=== PATIENT | female | born 1965 | race Caucasian/White ===

== ENCOUNTER → 2017-07-26 | Day surgery (SDC) | payer BC ==
[2017-07-24 16:59] VITALS: BMI 29.2
[~2017-07-26] MED LIST: LACTATED RINGERS 1,000 ML IV SCH; LIDOCAINE 1% 20 ML VIAL (10MG/ML) FOR IV START INTRADERMA ONE; LIDOCAINE 1% INJ 10MG/ML (20 ML MDV) ONE; MIDAZOLAM 2 MG/2 ML VIAL ONE; PROPOFOL 10 MG/ML 20 ML VIAL IV ONE
--- NOTE | 2017-07-26 09:12 | P.PCN ---
Date of Procedure: 07/26/17 Procedure(s) Performed: Procedure: Colonoscopy and polypectomy. Preoperative diagnosis: Screening for neoplasia. Postoperative diagnosis: 1. Small hepatic flexure polyp snared but no large polyps or cancer. 2. Diverticulosis with no evidence of acute diverticulitis or strictures. Preparation: HalfLytely prep. Sedation: Was provided by anesthesia. Brief clinical history: The patient is a 51-year-old female who is referred for this evaluation for screening for neoplasia age being her risk factor. She has no family history of colon cancer. She has no abdominal complaints, bleeding or anemia. This would be her first colonoscopy. Procedure: With the patient on her left lateral decubitus position and after informed consent and adequate sedation, the perianal area was inspected and it did not show any fissures or fistulas. There were no masses felt on digital rectal examination. The Olympus CFQ 160L video colonoscope was then inserted in the rectum in the usual fashion and advanced to the cecum. There were multiple diverticular orifices seen scattered, mostly in the sigmoid and left side with occasional orifice around the hepatic flexure with no evidence of acute diverticulitis or strictures. The mucosa appeared healthy. There was a small, less than 1 cm, polyp noted around the hepatic flexure which was snared and retrieved by suction but there were no large polyps or cancer. I retroflexed the endoscope in the rectum before the endoscope was withdrawn. The patient tolerated the procedure well. Plan: The patient was reassured. Discussed dietary measures. She will follow- up with you as planned and I anticipate repeating her colonoscopy in 5 years.
[2017-07-26 09:14] VITALS: RESP 16
[2017-07-26 09:29] VITALS: BP 128/83; PULSE 67
== END ==
LOC: ORWHC2ENDO 07:51
DX: Z12.11 Encounter for screening for malignant neoplasm of colon (principal); K57.30 Diverticulosis of large intestine without perforation or abscess without bleeding; D12.3 Benign neoplasm of transverse colon; F17.200 Nicotine dependence, unspecified, uncomplicated
CPT/HCPCS: 88305; 45385; J2250; J2001; J2704

== ENCOUNTER → 2020-04-12 | Outpatient (CLI) | payer BC ==
--- NOTE | 2020-04-12 11:55 | XR ---
EXAMINATION TYPE: XR foot complete LT DATE OF EXAM: 04/12/2020 CLINICAL HISTORY: Twisting injury yesterday with pain. TECHNIQUE: Frontal, lateral, and oblique images of the left foot are obtained. COMPARISON: None FINDINGS: There is no acute fracture/dislocation evident in the left foot. Flexion of the toes is s een. Small to moderate size inferior calcaneal spur. The joint spaces in the left foot appear within normal limits. The overlying soft tissue appears unremarkable. IMPRESSION: There is no acute fracture or dislocation in the left foot.
== END | disposition home or self-care (01) ==
LOC: RADXRYALE 11:36
PROVIDERS: ATTEND Physician Assistant Medical
DX: M79.672 Pain in left foot (principal)

== ENCOUNTER → 2022-05-24 | Outpatient (CLI) | payer OTHER ==
--- NOTE | 2022-05-24 09:37 | XR ---
EXAMINATION TYPE: XR foot complete LT DATE OF EXAM: 05/24/2022 9:25 AM INDICATION: Patient age:Female; 56 years old; Reason for study: [id number] LT FOOT PAIN; COMPARISON: Left foot radiograph 04/12/2020 TECHNIQUE: The left foot was examined in the AP, oblique, and lateral projections. FINDINGS: No evidence of any acute osseous pathology. No evidence of soft tissue swelling. Joints are preserve d. No radiopaque foreign bodies. Plantar calcaneal spurring is similar. No corresponding radiographic abnormality to patient's reported palpable lump. No subcutaneous gas. IMPRESSION: * No evidence of acute fracture. No significant change from prior examination 04/10/2020. * No corresponding radiographic abnormality related patient's reported palpable lump.
== END | disposition home or self-care (01) ==
LOC: RADXRYALE 09:12
PROVIDERS: ATTEND Physician Assistant
DX: M79.672 Pain in left foot (principal)

== ENCOUNTER → 2022-10-23 | Outpatient (CLI) | payer OTHER ==
--- NOTE | 2022-10-23 13:58 | CT ---
EXAMINATION TYPE: CT abdomen pelvis wo/w con DATE OF EXAM: 10/23/2022 COMPARISON: NONE HISTORY: 56-year-old female [id number], acquired cyst of kidney, shadow on kidney on prior MRI TECHNIQUE: Contiguous axial scanning of the abdomen and pelvis following before and after administrat ion of 70 ml Omnipaque 300 IV contrast. Delayed images through the kidneys and coronal/sagittal arnold nstructions performed. CT DLP: 1812.5 mGycm Automated exposure control for dose reduction was used. FINDINGS: Heart normal size without pericardial effusion. Strandy atelectasis in the lower lungs without pleura l effusion. Tiny hiatal hernia. No focal liver lesion or biliary ductal dilatation. Portal venous system is patent. No biliary ductal dilatation. Gallbladder, adrenal glands, right kidney, spleen, and pancreas within normal limits. 1.1 cm cortical cyst lateral upper pole left kidney. No dilated small bowel, free fluid, or free air. No mesenteric or retroperitoneal lymphadenopathy. Normal appendix. Oral contrast progressed to the splenic flexure of the colon. Mild scattered stool. Redundant sigmoid colon. No pericolic inflammatory change. Prominent stool distending the rectum up to 6.0 cm wide. Prominent urinary distention of the bladder by 14.2 cm craniocaudal. Please correlate to ensure that this represents voluntary retention. There are 2 tubal ligation clips located in the left side of the pelvis. The right-sided tubal ligation clip is likely displaced from its correct position. Both ovar ies are visualized. No abnormal fluid collection in the pelvis or pelvic lymphadenopathy. Bones: Chronic-appearing superior endplate deformity of L3. Superior end plate Schmorl's nodes of T11 and T12. Hypertrophic facet arthropathy. Grade 1 retrolisthesis L2-L3. Moderate to advanced degener ative disc disease L5-S1. IMPRESSION: 1. A BENIGN 1.1 CM CORTICAL CYST LATERAL UPPER POLE LEFT KIDNEY. NO SUSPICIOUS RENAL MASS OTHERWISE S EEN. 2. TINY HIATAL HERNIA. 3. PROMINENT DISTENTION OF THE URINARY BLADDER. PLEASE CORRELATE TO ENSURE THAT THIS REPRESENTS VOLUN TARY RETENTION.
== END | disposition home or self-care (01) ==
LOC: RADCTMAIN 10:04
PROVIDERS: ATTEND Family Medicine
DX: N28.1 Cyst of kidney, acquired (principal)
CPT/HCPCS: 74178; Q9967

== ENCOUNTER → 2024-10-28 | Outpatient (CLI) | payer OTHER ==
--- NOTE | 2024-10-28 10:55 | US ---
EXAMINATION TYPE: US kidneys/renal and bladder DATE OF EXAM: 10/28/2024 COMPARISON: CT abdomen and pelvis 10/23/22 CLINICAL INDICATION: Female, 58 years old with history of R31.9 HEMATURIA; microscopic hematuria TECHNIQUE: Grayscale imaging of the bilateral kidneys and urinary bladder: FINDINGS: EXAM MEASUREMENTS: Right Kidney: 12.4 x 5.5 x 5.5 cm Left Kidney: 11.2 x 4.2 x 4.9 cm Post Void Residual Volume: 31.7 mL Right Kidney: No hydronephrosis or masses seen Left Kidney: hypoechoic area seen in sup pole measuring 1.3 x 1.2 x 1.2cm Bladder: wnl Bilateral Jets seen: yes Normal Post Void Residual: yes There is no evidence for hydronephrosis at this point in time. Cortical medullary differentiation is maintained bilaterally. No nephrolithiasis is seen. Left renal superior pole 1.3 cm simple cyst. No solid masses are identified. The urinary bladder is anechoic. IMPRESSION: 1. No hydronephrosis or shadowing renal calculi. 2. Left renal upper pole 1.3 cm simple cyst. 3. Unremarkable urinary bladder with normal postvoid residual. [facility], , 10/28/2024 10:52 AM
== END | disposition home or self-care (01) ==
LOC: RADUSWWP 10:18
PROVIDERS: ATTEND Family Medicine
DX: N28.1 Cyst of kidney, acquired (principal); R39.198 Other difficulties with micturition; R31.9 Hematuria, unspecified
CPT/HCPCS: 76770

== ENCOUNTER 2025-01-29 19:13 | Emergency (ER) | payer OTHER ==
[2025-01-29] MEDS: MORPHINE SULFATE 4 MG/ML SYRINGE IM STA (20:27)
[2025-01-29] MEDS: LIDOCAINE 4% PATCH TOPICAL ONE (20:28)
--- NOTE | 2025-01-29 21:22 | CT ---
EXAMINATION TYPE: CT lumbar spine wo con CT DLP: 1311.6 mGycm, Automated exposure control for dose reduction was used. DATE OF EXAM: 01/29/2025 8:47 PM COMPARISON: CT abdomen and pelvis 10/23/2022. CLINICAL INDICATION:Female, 59 years old with history of pain; PHH, Low back pain., pain TECHNIQUE: Multiple axial images were obtained from the midportion of T11 through the sacroiliac joe nts. Soft tissue and bone windows in coronal and sagittal planes were obtained and reviewed. Contrast used: none. Oral contrast used: none. FINDINGS: Alignment: There are 5 lumbar type vertebral bodies within normal alignment. Bone: No evidence of fracture is identified. Mild degenerative changes of the bilateral SI joints. S chmorl's node involving the superior endplate of the T12 vertebral body with endplate sclerosis aroun d the disc at this level. Additional Schmorl's node involving the superior endplate of the L3 vertebr al body. Additional posterior endplate sclerosis involving the disc at this level. The Schmorl's node s are stable from 2021 exam. Discs: T12-L1: No spinal canal or neural foraminal stenosis is identified. L1-L2: No spinal canal or neural foraminal stenosis is identified. L2-L3: Broad-based disc bulge with mild effacement of the anterior thecal sac. The left neural forame n is patent. Mild right neural foraminal stenosis. L3-L4: Broad-based disc bulge with minimal effacement of the anterior thecal sac. No neural foraminal stenosis. L4-L5: Broad-based disc bulge with mild effacement of the anterior thecal sac. No neural foraminal st enosis. L5-S1: Vacuum disc disease identified with disc space narrowing. Broad-based disc bulge without signi ficant effacement of the anterior thecal sac. Bilateral facet arthropathy. Prominent left lateral ost eophyte. The right neural foramen is patent. Moderate left neural foraminal stenosis. Other: Left-sided tubal ligation clip. Migrated right tubal ligation clip within the right rectouteri ne space. Mild atherosclerotic calcification of the abdominal aorta. IMPRESSION: 1. No evidence for spinal fracture. 2. Mild multilevel degenerative disc disease and facet arthropathy as described above. Moderate left neural foraminal stenosis at L5-S1. [facility], , 01/29/2025 9:19 PM
--- NOTE | 2025-01-29 21:58 | ED ---
General Adult HPI - General Chief complaint: Back Pain/Injury Stated complaint: Back Pain/R Leg Weakness Time Seen by Provider: 01/29/25 20:00 Source: patient, RN notes reviewed, old records reviewed Mode of arrival: ambulatory Limitations: no limitations - History of Present Illness Initial comments: Patient is a 59-year-old female presents emergency department with acute on chronic back pain. Has a known disc herniation in the lumbar spine. States she was stretching and injured her back today. Denies any urinary or bowel incontinence or retention. Denies any lower extremity paralysis or weakness. Denies any saddle paresthesias. Denies any obvious injuries. States it is a pulling sensation lower spine. No shooting pain down the posterior aspect of either leg. Denies any focal weakness but pain with movement or standing up. Presents for further evaluation at this time. Has not followed up with a spine surgeon. - Related Data Home Medications Medication Instructions Recorded Confirmed Ginseng 1 dose PO DAILY 07/24/17 Multivitamins, Thera [Multivitamin 1 tab PO DAILY 07/24/17 07/24/17 (formulary)] Sea Kelp 1 dose PO DAILY 07/24/17 Previous Rx's Medication Instructions Recorded Cyclobenzaprine [Flexeril] 5 mg PO TID PRN 5 Days #15 tablet 01/29/25 Lidocaine 4% Patch 1 patch TOPICAL DAILY PRN 14 Days 01/29/25 #14 patch Allergies Allergy/AdvReac Type Severity Reaction Status Date / Time No Known Allergies Allergy Verified 01/29/25 19:31 Review of Systems ROS Statement: Those systems with pertinent positive or pertinent negative responses have been documented in the HPI. Review of Systems: CONST: Denies fever EYES: Denies blurry vision ENT: Denies nasal congestion C/V: Denies Chest pain RESP: Denies shortness of breath GI: Denies abdominal pain : Denies dysuria SKIN: Denies rash. MSK: Endorses back pain NEURO: Denies headache ROS Other: All systems not noted in ROS Statement are negative. Past Medical History Past Medical History: No Reported History History of Any Multi-Drug Resistant Organisms: None Reported Past Surgical History: Tubal Ligation Past Anesthesia/Blood Transfusion Reactions: No Reported Reaction Past Psychological History: No Psychological Hx Reported Smoking Status: Vaper Past Alcohol Use History: Occasional Past Drug Use History: None Reported - Past Family History Mother Family Medical History: Cancer Father Family Medical History: Myocardial Infarction ([place]) General Exam - General Exam Comments Initial Comments: General: Appears in mild distress secondary to back pain. HEAD: Normal with no signs of head trauma. EYES: EOMI ENT: Hearing grossly intact RESPIRATORY: Clear breath sounds bilaterally. No wheezes, rales, or rhonchi. C/V: Regular rate and rhythm. Peripheral pulses 2+ intact throughout. S1 and S2 auscultated. ABD: Nondistended EXT: Decreased range of motion of the trunk secondary to lower back pain. No obvious deformity of the spine. Midline lumbar spine tenderness to palpation primarily L3-S1. No step-offs or deformities present. No thoracic or cervical spine tenderness to palpation. Paraspinal muscle tenderness to palpation as well. SKIN: No rashes or lesions observed on exposed skin. NEURO: Alert and oriented x 4. No focal deficits. GCS of 15. NIH is 0. Limitations: no limitations Course Vital Signs 01/29/25 01/29/25 19:27 21:59 Temperature 97.6 F 97.9 F Pulse Rate 93 81 Respiratory 16 18 Rate Blood Pressure 134/82 117/76 O2 Sat by Pulse 97 99 Oximetry Medical Decision Making - Medical Decision Making Was pt. sent in by a medical professional or institution (, PA, CD TECHNICIAN, urgent care, hospital, or senior living...) When possible be specific @ -No Did you speak to anyone other than the patient for history (EMS, parent, family, police, friend...)? What history was obtained from this source @ -No Did you review nursing and triage notes (agree or disagree)? Why? @ -I reviewed and agree with nursing and triage notes Were old charts reviewed (outside hosp., previous admission, EMS record, old EKG, old radiological studies, urgent care reports/EKG's, senior living records)? Report findings @ -No old charts were reviewed Differential Diagnosis (chest pain, altered mental status, abdominal pain women, abdominal pain men, vaginal bleeding, weakness, fever, dyspnea, syncope, headache, dizziness, GI bleed, back pain, seizure, CVA, palpatations, mental health, musculoskeletal)? @ -Differential Back Pain: Strain, zoster, cauda equina syndrome, epidural abscess, vertebral osteomyelitis, discitis, fracture, subluxation, disc herniation, DJD, spinal stenosis, dissection, AAA, pancreatitis, peptic ulcer disease, pyelonephritis, kidney stone, this is not meant to be an all-inclusive list. EKG interpreted by me (3pts min.). @ -None done X-rays interpreted by me (1pt min.). @ -None done CT interpreted by me (1pt min.). @ -CT lumbar spine revealed disc herniations L2-S1 with some neural foraminal stenosis at L5-S1. U/S interpreted by me (1pt. min.). @ -None done What testing was considered but not performed or refused? (CT, X-rays, U/S, labs)? Why? @ -None What meds were considered but not given or refused? Why? @ -None Did you discuss the management of the patient with other professionals (professionals i.e. , PA, CD TECHNICIAN, lab, RT, psych nurse, social work associate, clinical engineer, teacher, electronic warfare officer, cyanide case hardener)? Give summary @ -No Was smoking cessation discussed for >3mins.? @ -No Was critical care preformed (if so, how long)? @ -No Were there social determinants of health that impacted care today? How? (Homelessness, low income, unemployed, alcoholism, drug addiction, transportation, low edu. Level, literacy, decrease access to med. care, residential, rehab)? @ -No Was there de-escalation of care discussed even if they declined (Discuss DNR or withdrawal of care, Hospice)? DNR status @ -No What co-morbidities impacted this encounter? (DM, HTN, Smoking, COPD, CAD, Cancer, CVA, ARF, Chemo, Hep., AIDS, mental health diagnosis, sleep apnea, morbid obesity)? @ -None Was patient admitted / discharged? Hospital course, mention meds given and route, prescriptions, significant lab abnormalities, going to OR and other pertinent info. @ -Based on patient's presentation and physical exam, presents with mechanical lumbar spine pain in the setting of chronic disc herniations. This is likely what is going on at this time. Patient was sent from urgent care. Already received Toradol as well as IM steroid. Patient will be given IM injection of morphine as well as lidocaine patch for analgesia. Vital signs within acceptable limits. No cauda equina symptoms. We will obtain CT imaging. She was in agreement this plan. CT imaging showed disc herniations that are mild from L2-S1 with some mild narrowing at the left neural foramen of L5-S1. I discussed results with patient. Pain is improved. She will be discharged home at this time. Recommended follow-up with environmental management specialist which she will be given contact information for Dr. Goodman as his group is on-call right now for orthopedics. Patient will be discharged home with a prescription for lidocaine patches, Flexeril as well as a starter pack of Tylenol 3. She was in agreement this plan. I instructed the patient to follow up with their PCP in the next 1-3 days. I explained that the patient should return to the emergency department if they experience any worsening symptoms. Strict return precautions were discussed with the patient. The patient expressed understanding of these instructions. I answered all questions that the patient had. The patient was discharged home in good condition with their prescriptions and follow up information. Undiagnosed new problem with uncertain prognosis? @ -No Drug Therapy requiring intensive monitoring for toxicity (Heparin, Nitro, Insulin, Cardizem)? @ -No Were any procedures done? @ -No Diagnosis/symptom? @ -Lumbar spine disc herniations Acute, or Chronic, or Acute on Chronic? @ -Acute on chronic Uncomplicated (without systemic symptoms) or Complicated (systemic symptoms)? @ -uncomplicated Side effects of treatment? @ -No Exacerbation, Progression, or Severe Exacerbation? @ -No Poses a threat to life or bodily function? How? (Chest pain, [place], [place], pneumonia, PE, COPD, DKA, ARF, appy, cholecystitis, CVA, Diverticulitis, Homicidal, Suicidal, threat to staff... and all critical care pts) @ -Unlikely at this time Disposition Clinical Impression: Herniated disc Disposition: ADMITTED IP TO THIS HOSP Condition: Stable Instructions (If sedation given, give patient instructions): Lumbar Disc Herniation (ED) Prescriptions: Cyclobenzaprine [Flexeril] 5 mg PO TID PRN 5 Days #15 tablet PRN Reason: Pain Lidocaine 4% Patch 1 patch TOPICAL DAILY PRN 14 Days #14 patch PRN Reason: Pain Is patient prescribed a controlled substance at d/c from ED?: No Referrals: None,Stated [Primary Care Provider] - 1-2 days Shimon Goodman DO [Doctor of Osteopathic Medicine] - 1-2 days Time of Disposition: 21:55
[2025-01-29 22:00] VITALS: BP 117/76; PULSE 81; RESP 18; TEMP 97.9
[2025-01-29] MEDS: ACET/COD 300 MG/30 MG STARTER PACK 6 TAB BTL PO STA (22:04)
== END 2025-01-29 22:07 | disposition other institution (70) ==
LOC: EC 19:13
DX: M51.26 Other intervertebral disc displacement, lumbar region (principal); F17.290 Nicotine dependence, other tobacco product, uncomplicated
CPT/HCPCS: 99285; 96372 ×2; 72131; 99284; J2270